=== PATIENT | female | born 1950 | race Caucasian/White ===

== ENCOUNTER 2018-11-24 15:04 | Outpatient (CLI) | payer MEDICARE, BC ==
--- NOTE | 2018-11-24 15:28 | RAD ---
2 VIEWS CHEST: Date: 11/24/18 COMPARISON: None. HISTORY: Malignant neoplasm of the lower lobe bronchus of the lung. FINDINGS: Two views of the chest show normal sized cardiomediastinal silhouette. Postsurgical changes are seen in the right hilar region. Scarring is seen in the right lung base. There is no evidence of consolida tion, mass, or pleural effusion. Degenerative changes are seen in the spine. IMPRESSION: No evidence of acute cardiopulmonary disease. POS: [facility]
== END 2018-11-24 15:05 | disposition home or self-care (01) ==
LOC: RAD 15:04
PROVIDERS: ATTEND Thoracic Surgery (Cardiothoracic Vascular Surgery)
DX: C34.30 Malignant neoplasm of lower lobe, unspecified bronchus or lung (principal)
CPT/HCPCS: 71046